=== PATIENT | female | born 1975 | race Caucasian/White ===

== ENCOUNTER 2018-11-21 18:29 | Emergency (ER) | payer OTHER ==
[2018-11-21 18:42] VITALS: BP 119/84; PULSE 72; TEMP 98.6; BMI 57.4
--- NOTE | 2018-11-22 00:01 | PDOC ---
Documentation entered by Sagrario Rodriguez SCRIBE, acting as scribe for Danae Andrade MD. Danae Andrade MD: This documentation has been prepared by the thuanibeMichael Lincy, SCRIBE, under my direction and personally reviewed by me in its entirety. I confirm that the documentation accurately reflects all work, treatment, procedures, and medical decision making performed by me. History of Present Illness - General Chief Complaint: Pain, Acute Stated Complaint: right posterior knee pain History Source: Patient Exam Limitations: No Limitations - History of Present Illness Initial Comments: 11/21/18 20:03 The patient is a 43-year-old female with a past medical history significant for bipolar disorder who presents to the emergency department with right knee pain. The patient reports on Monday, she was walking down the hill, when she felt her right knee give outwithout actually falling. The patient reports since then shes been having worsening posterior knee pain with ambulation, with relief at rest. The patient reports taking Advil for the pain without relief. Denies falls or trauma. Denies history of blood clots. Denies ankle pain. Past History - Past Medical History Allergies/Adverse Reactions: Allergies Allergy/AdvReac Type Severity Reaction Status Date / Time No Known Allergies Allergy Unverified 11/21/18 18:30 Home Medications: Ambulatory Orders Aripiprazole [Abilify] 10 mg PO DAILY 11/21/18 Benztropine Mesylate [Cogentin -] 0.5 mg PO DAILY 11/21/18 Lamotrigine [Lamictal] 200 mg PO DAILY 11/21/18 Perphenazine [Trilafon] 4 mg PO AM 11/21/18 Perphenazine [Trilafon] 16 mg PO HS 11/21/18 propRANOLol HCL [Inderal] 40 mg PO BID 11/21/18 COPD: No Psychiatric Problems: Yes (bipolar) - Psycho Social/Smoking Cessation Hx Smoking History: Never smoked Hx Alcohol Use: No Drug/Substance Use Hx: No Review of Systems - Review of Systems Able to Perform ROS?: Yes Comments:: 11/21/18 20:15 CONSTITUTIONAL: Pt denies Fever, Chills, weakness. HEENT: denies vision changes, sore throat RESPIRATORY: Denies cough, sob, hemoptysis CARDIAC: denies chest pain, palpitations, lightheadedness, leg swelling ABD/GI: denies abd pain, nausea, vomiting, blood per rectum, melena, diarrhea : denies dysuria, frequency, discharge MSK: +right knee pain. denies back pain, joint swelling SKIN: denies bruising, erythema, rash NEUROLOGICAL: denies headache, numbness, focal weakness, tingling, ataxia, weakness HEMATOLOGICAL: denies anemia, easy bruising, easy bleeding *Physical Exam - Vital Signs Last Vital Signs Temp Pulse Resp BP Pulse Ox 98.6 F 72 18 119/84 98 11/21/18 18:30 11/21/18 18:30 11/21/18 18:30 11/21/18 18:30 11/21/18 18:30 - Physical Exam Comments: 11/21/18 20:16 GENERAL: Morbid obese. The patient is awake, alert, and fully oriented, in no acute distress. Extremities: Right knee: Mild direct tenderness of the medial posterior portion of the right knee, with mild pain on valgus stressing. No fullness or masses on popliteal fossa. No other tenderness, edema, ecchymosis or deformities noted. No patellar defect or tenderness. Pain reproduced with weight bearing. Distal extremities normal without edema, deformities or tenderness. ED Treatment Course - RADIOLOGY Radiology Studies Ordered: Category Date Time Status KNEE 2 POS-RIGHT [RAD] Stat Radiology 11/21/18 19:50 Taken ED Progress Note - Progress Note Progress Note: As noted above, this 43-year-old woman with a history of bipolar disorder presents with history of right posterior knee pain for the last 3 days. Pain is present only when weightbearing; she recently began a exercise regimen ( daily walking). No history of discrete trauma or fall. She denies edema/fever/ shortness of breath or cough. No history of thromboembolic disorders. No significant risk factors for acute thrombo-embolic process. Exam as noted above. Although history and exam suggests soft tissue injury, 2 position right knee x- ray performed to rule out occult fracture. Preliminary interpretation: No evidence of acute fracture or dislocation. Clinical presentation was consistent with knee sprain. Fuentes wrap applied. Fuentes wrap should be worn during the day for the next 5 to 7 days. Strenuous activities involving lower extremity should be avoided for the same period of time. The patient has taken ibuprofen in the past as needed for pain relief; last dose was earlier today. She can continue to take this medication up to 3 times a day (200-400 mg). The patient was cautioned to take ibuprofen with a meal. The patient has been seen by orthopedic surgeon in the past (had left knee pain for years ago). She should follow-up with her orthopedic surgeon; if she develops severe pain/swelling in the area, she should return to the ER Discharge - Discharge Information Problems reviewed: Yes Clinical Impression/Diagnosis: Right knee sprain Qualifiers: Encounter type: initial encounter Involved ligament of knee: medial collateral ligament Qualified Code(s): S83.411A - Sprain of medial collateral ligament of right knee, initial encounter Condition: Stable Disposition: HOME - Follow up/Referral - Patient Discharge Instructions Patient Printed Discharge Instructions: Knee Sprain Additional Instructions: Ice to posterior knee as needed for the next 48 hours Fuentes wrap during the day for the next 5 to 7 days Avoid strenuous activity involving lower extremities for the next week Ibuprofen 400 mg with food up to 3 times a day as needed for pain Follow-up with your orthopedist within the next week as discussed Return to ER if you develop severe pain/swelling - Post Discharge Activity
== END 2018-11-21 21:33 | disposition home or self-care (01) ==
LOC: FER 18:29
DX: S83.411A Sprain of medial collateral ligament of right knee, initial encounter (principal); X58.XXXA Exposure to other specified factors, initial encounter; Y93.89 Activity, other specified; Y92.89 Other specified places as the place of occurrence of the external cause; F31.9 Bipolar disorder, unspecified
CPT/HCPCS: 73560-TC-RT-FY; 99281-25

== ENCOUNTER 2022-07-10 08:26 | Emergency (ER) | payer OTHER ==
[2022-07-10 09:05] VITALS: BP 114/75; PULSE 81; RESP 18; TEMP 98.6; BMI 47.0
[2022-07-10] MEDS ORDERED: KETOROLAC TROMETHAMINE 60 MG/2 ML VIAL IM ONE (11:06)
[2022-07-10] MEDS ORDERED: KETOROLAC TROMETHAMINE 60 MG/2 ML VIAL ONE (11:08)
== END 2022-07-10 11:35 | disposition home or self-care (01) ==
LOC: FER 08:26
PROC: 3E0233Z Introduction of Anti-inflammatory into Muscle, Percutaneous Approach (ICD-10-PCS; principal; 2022-07-10)
DX: M17.11 Unilateral primary osteoarthritis, right knee (principal)
CPT/HCPCS: 73562-TC-RT-FY; 93971-TC; 99284-25

== ENCOUNTER 2023-06-26 10:14 | Day surgery (SDC) | payer OTHER ==
[2023-06-19 14:52] VITALS: BMI 48.2
[2023-06-26 10:39] VITALS: RESP 16
[2023-06-26 12:00] VITALS: TEMP 96.9
[2023-06-26 12:03] VITALS: BP 109/77; PULSE 76
== END 2023-06-26 12:00 | disposition home or self-care (01) ==
LOC: FASU-ENDO 10:14
PROVIDERS: ATTEND Internal Medicine Gastroenterology
PROC: 0DJD8ZZ Inspection of Lower Intestinal Tract, Via Natural or Artificial Opening Endoscopic (ICD-10-PCS; principal; 2023-06-26 11:01)
DX: Z12.11 Encounter for screening for malignant neoplasm of colon (principal)
CPT/HCPCS: 81025

== ENCOUNTER 2023-11-27 07:52 | Day surgery (SDC) | payer OTHER ==
[2023-11-24 14:36] VITALS: BMI 43.0
[2023-11-27] MEDS ORDERED: PROPOFOL 120 ML ONE (08:00)
[2023-11-27 09:07] VITALS: TEMP 97.6
[2023-11-27 09:27] VITALS: BP 112/85; PULSE 72; RESP 16
== END 2023-11-27 09:27 | disposition home or self-care (01) ==
LOC: FASU-ENDO 07:52
PROVIDERS: ATTEND Internal Medicine Gastroenterology
PROC: 0DB68ZX Excision of Stomach, Via Natural or Artificial Opening Endoscopic, Diagnostic (ICD-10-PCS; 2023-11-27)
PROC: 0DB98ZX Excision of Duodenum, Via Natural or Artificial Opening Endoscopic, Diagnostic (ICD-10-PCS; principal; 2023-11-27 08:45)
DX: K29.50 Unspecified chronic gastritis without bleeding (principal)
CPT/HCPCS: 81025; 88305-TC; 88342-TC